=== PATIENT | female | born 1970 | race Caucasian/White ===

== ENCOUNTER 2023-11-21 10:37 | Emergency (ER) | payer SELFPAY ==
[2023-11-21] MEDS ORDERED: HYDROcodone/Acetaminophen 5/325 mg Tablet ONE (13:10)
== END 2023-11-21 13:27 | disposition home or self-care (01) ==
LOC: CSHERS 10:37
DX: M25.561 Pain in right knee (principal); I10 Essential (primary) hypertension; W18.49XA Other slipping, tripping and stumbling without falling, initial encounter